=== PATIENT | male | born 1975 | race African-American/Black ===

== ENCOUNTER 2025-02-08 20:14 | Emergency (ER) | payer OTHER ==
[~2025-02-08] VITALS: Ht 185.4 cm; Wt 77.1 kg
--- NOTE | 2025-02-08 20:36 | ED.PDOC ---
Eye-HPI HPI Comments 49-year-old male presents to the ED chief complaint cold-like symptoms x5 days. Patient states bilateral ear fullness and pain, sinus pressure, and sore throat. Has been taking [id number] medications with little relief. States he missed few days of work due to his symptoms. Denies nausea, vomiting, chest pa in, shortness of breath, difficulty breathing, dizziness, fever, or chills. Chief Complaint: Flu like Time Seen by MD: 20:23 Reviewed Notes: Nurses Notes, Medications, Allergies Allergies: Coded Allergies: NO KNOWN ALLERGIES (Unverified , 02/08/25) Information Source: Patient Mode of Arrival: Ambulatory Past Medical History PAST MEDICAL HISTORY: Denies Surgical History: Denies all surgeries Family History Family History: Unknown Social History Smoker: Non-Smoker Alcohol: Denies ETOH Use Drugs: Denies Drug Use All Other Systems: Reviewed and Negative (see hpi) Physical Exam General Appearance: No Apparent Distress, Normal HEENT: Pharyngeal Erythema, Pharynx Normal, TM Abnormal (L) (Erythemic bulging canal clear), TM Abnormal (R) (Bulging, pale, canal clear), Tonsillar Exudate (Tonsils grade 4) Neck: Full Range of Motion, Non-Tender Respiratory: Lungs Clear, No Respiratory Distress, Normal Breath Sounds Cardiovascular: No Edema, No JVD, No Murmur, No Gallop, Normal Peripheral Pulses, Regular Rate/Rhythm Breast Exam: Deferred Gastrointestinal: No Organomegaly, Non Tender, No Pulsatile Mass, Normal Bowel Sounds, Soft Genitalia: Deferred Pelvic: Deferred Rectal: Deferred Extremities: Normal capillary refill, Normal range of motion, No pedal edema Musculoskeletal : Apperance: Normal Neurologic: Alert, No Motor Deficits, Normal Affect, Normal Mood, No Sensory Deficits Cerebellar Function: Normal Reflexes: NOT DONE Skin: Dry, Normal Color, Warm Lymphatic: Cervical Adenopathy (L), Cervical Adenopathy (R), No Adenopathy Was a procedure done? Was a procedure done?: No EENT DIFF Eye: N/A Ear: Otitis Media, Pharyngitis Sore Throat: Peritonsillar Abscess, Peritonsillar Cellulitis, Streptococcal, Viral Pharyngitis, URI X-Ray, Labs, Meds, VS Vital Signs Date Time Temp Pulse Resp B/P (MAP) Pulse Ox O2 Delivery O2 Flow Rate FiO2 10/24/25 20:18 97.8 54 18 128/95 97 97.8 Time of 1ST Reevaluation: 20:35 Reevaluation 1ST: Unchanged Time of 2ND Reevaluation: 20:43 Reevaluation 2ND: Improved Patient Education/Counseling: Diagnosis, Treatment, Need For Follow Up Family Education/Counseling: No Family Present SEPSIS Sepsis Screen Date sepsis recognized/suspect: Feb 08, 2025 Time Sepsis recognized/suspect: 2021 Recent Procedure: No On Antibiotic Therapy: No Respiratory Rate >20: No Heart Rate >90: No Temp<36 C (96.8 F) or >38.3 C: No SBP <90 or MAP <65 mmHG: No New Acute Mental Status Change: No Is the patient on CPAP, BIPAP,: No Physician Orders Dexamethasone Injection (Decadron Inject (02/08/25 20:45) Vital Signs Date Time Temp Pulse Resp B/P (MAP) Pulse Ox O2 Delivery O2 Flow Rate FiO2 02/08/25 20:18 97.8 54 18 128/95 97 97.8 Departure 1 Departure Time of Disposition: 20:41 Impression: Primary Impression: Acute tonsillitis Qualified Codes: J03.90 - Acute tonsillitis, unspecified Disposition: 01 HOME / SELF CARE / HOMELESS Condition: Stable e-Prescriptions Methylprednisolone (Medrol Dosepak) 4 Mg Sal 4 MG PO UD for 6 Days, #21 TAB UAD Prov: EVERETTE SINGH 02/08/25 Amoxicillin & Pot Clavulanate (AUGMENTIN TABLET) 875 Mg Tb 875 MG PO BID for 10 Days, #20 TAB Prov: EVERETTE SINGH 02/08/25 Discharged With: Self Critical Care Note Critical Care Time?: No Stability Stability form required: No EVERETTE SINGH Feb 08, 2025 20:36
[2025-02-08] MEDS ORDERED: METH4PAK PO (20:43)
[2025-02-08] MEDS ORDERED: AUG875T PO (20:43)
[2025-02-08 21:02] VITALS: BP 127/91; PULSE 81; RESP 18; TEMP 98.1; O2SAT 97
== END 2025-02-08 21:09 | disposition home or self-care (01) ==
LOC: ER 20:14
DX: J03.90 Acute tonsillitis, unspecified (principal)
CPT/HCPCS: 96372; 99283; J1100